=== PATIENT | male | born 1970 | race Two or more races ===

== ENCOUNTER 2017-01-19 08:29 | Emergency (ER) | payer SELFPAY ==
[~2017-01-19] VITALS: Ht 177.8 cm; Wt 52.6 kg
[2017-01-19 08:40] VITALS: BP 122/78
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
[2017-01-19 10:00] VITALS: BP 118/64
== END 2017-01-19 10:17 | disposition home or self-care (01) ==
LOC: EDBD 08:29 → EMR 09:00
DX: K94.03 Colostomy malfunction (principal); Y83.3 Surgical operation with formation of external stoma as the cause of abnormal reaction of the patient, or of later complication, without mention of misadventure at the time of the procedure; Z85.038 Personal history of other malignant neoplasm of large intestine
CPT/HCPCS: 99283